=== PATIENT | female | born 1990 | race Asian ===

== ENCOUNTER 2016-11-05 13:01 | Outpatient (CLI) | payer OTHER | END 2016-11-05 19:29 | disposition home or self-care (01) | LOC: LAB 13:01 | DX: I10 Essential (primary) hypertension (principal) | CPT/HCPCS: 84156 ==

== ENCOUNTER 2022-10-16 16:42 | Emergency (ER) | payer OTHER ==
[~2022-10-16] VITALS: Ht 165.1 cm; Wt 78.5 kg
[2022-10-16 16:51] VITALS: BP 109/62; TEMP 97.7
[2022-10-16 17:04] LABS: PLATELET COUNT 283 K/uL (152-353)
[2022-10-16 17:10] LABS: POTASSIUM 3.3 mmol/L (3.6-5.2); SODIUM 136 mmol/L (136-145)
== END 2022-10-16 18:14 | disposition home or self-care (01) ==
LOC: ED 16:42
PROVIDERS: Emergency Medicine
DX: R53.1 Weakness (principal); R42 Dizziness and giddiness; E87.6 Hypokalemia; Z33.1 Pregnant state, incidental; A59.8 Trichomoniasis of other sites
CPT/HCPCS: 80048; 81000; 84484; 84702; 85027; 93005; 99283

== ENCOUNTER 2022-11-17 15:10 | Emergency (ER) | payer OTHER ==
[~2022-11-17] VITALS: Ht 165.1 cm; Wt 101.6 kg
[2022-11-17 15:15] VITALS: TEMP 98.5
[2022-11-17 16:29] VITALS: BP 124/76
== END 2022-11-17 16:30 | disposition home or self-care (01) ==
LOC: ED 15:10
DX: N39.0 Urinary tract infection, site not specified (principal); B37.9 Candidiasis, unspecified; Z34.90 Encounter for supervision of normal pregnancy, unspecified, unspecified trimester
CPT/HCPCS: 81000; 87086; 87088; 99283

== ENCOUNTER 2022-12-30 17:41 | Emergency (ER) | payer OTHER ==
[~2022-12-30] VITALS: Ht 165.1 cm; Wt 97.1 kg
[2022-12-30 17:51] VITALS: BP 98/82; TEMP 98
[2022-12-30 18:11] LABS: PLATELET COUNT 350 K/uL (152-353)
[2022-12-30 18:19] LABS: POTASSIUM 3.8 mmol/L (3.6-5.2); SODIUM 137 mmol/L (136-145)
== END 2022-12-30 18:25 | disposition short-term general hospital (02) ==
LOC: ED 17:41
PROVIDERS: Family Medicine
DX: O99.419 Diseases of the circulatory system complicating pregnancy, unspecified trimester (principal); I47.1 Supraventricular tachycardia; O16.9 Unspecified maternal hypertension, unspecified trimester; Z3A.00 Weeks of gestation of pregnancy not specified; K21.9 Gastro-esophageal reflux disease without esophagitis; E78.5 Hyperlipidemia, unspecified
CPT/HCPCS: 36415; 80053; 80307; 81002; 84484; 85027; 93005; 96361; 96374; 99285; J0153